=== PATIENT | male | born 1955 | race Caucasian/White ===

== ENCOUNTER 2020-11-02 09:28 | Day surgery (SDC) | payer MEDICARE, OTHER ==
[~2020-11-02] VITALS: Ht 193 cm; Wt 110.9 kg
[~2020-11-02 09:28] MED LIST: FLUD0.1T PO; HCG SC; HYDR20TA24 PO; PANT20TA4 PO
[2020-11-02 09:43] VITALS: BP 147/88
[2020-11-02] MEDS ORDERED: CHLORHEXIDINE 15 ML UDC ONE (09:51)
[2020-11-02] MEDS ORDERED: CHLORHEXIDINE 15 ML UDC PO ONE (10:00)
[2020-11-02] MEDS ORDERED: LACTATED RINGERS 1,000 ML IV SCH (10:00)
[2020-11-02] MEDS ORDERED: GEMCITABINE HCL 1,000 MG in SODIUM CHLORIDE 0.9% 23.7 ML IS ONE (12:00)
[2020-11-02] MEDS ORDERED: FENTANYL PF 100 MCG/2ML ONE (12:25)
[2020-11-02] MEDS ORDERED: MIDAZOLAM 1 MG/ML, 2ML ONE (12:25)
[2020-11-02] MEDS ORDERED: OXYcodone 5 MG/5 ML ORAL.SOL UDC PO PRN (12:30)
[2020-11-02] MEDS ORDERED: LABETALOL 5MG/ML, 20ML IV PRN (12:30)
[2020-11-02] MEDS ORDERED: ACETAMINOPHEN 325 MG TABLET PO PRN (12:30)
[2020-11-02] MEDS ORDERED: MEPERIDINE/PF 25MG/0.5ML IVPush PRN (12:30)
[2020-11-02] MEDS ORDERED: PROMETHAZINE 25 MG/ML, 1ML IVPush PRN (12:30)
[2020-11-02] MEDS ORDERED: HALOPERIDOL 5 MG/ML IV PRN (12:30)
[2020-11-02] MEDS ORDERED: HYDROmorphone 1 MG/ML, 1ML INJ IVPush PRN (12:30)
[2020-11-02] MEDS ORDERED: FENTANYL PF 100 MCG/2ML IV PRN (12:30)
[2020-11-02] MEDS ORDERED: hydrALAzine 20 MG/ML, 1ML IV PRN (12:30)
[2020-11-02] MEDS ORDERED: DIPHENHYDRAMINE 50 MG/ML, 1ML IVPush PRN (12:30)
[2020-11-02] MEDS ORDERED: HYDROCORTISONE 100 MG INJ. ONE (12:46)
[2020-11-02] MEDS ORDERED: SUCCINYLCHOLINE 20 MG/ML, 10ML ONE (13:24)
[2020-11-02] MEDS ORDERED: NEOSTIGMINE 1 MG/ML, 10ML ONE (13:24)
[2020-11-02] MEDS ORDERED: ROCURONIUM 10MG/ML,5ML ONE (13:24)
[2020-11-02] MEDS ORDERED: ONDANSETRON 2MG/ML, 2ML ONE (13:24)
[2020-11-02] MEDS ORDERED: DEXAMETHASONE 4 MG/ML, 1ML ONE (13:24)
[2020-11-02] MEDS ORDERED: PROPOFOL 10 MG/ML, 20ML ONE (13:24)
[2020-11-02] MEDS ORDERED: CEFAZOLIN 1,000 MG ONE (13:24)
[2020-11-02] MEDS ORDERED: GLYCOPYRROLATE 0.2MG/1ML, 5ML ONE (13:24)
== END 2020-11-02 17:20 | disposition home or self-care (01) ==
LOC: OR 09:28 → OUT 17:20
PROVIDERS: ATTEND Urology
DX: N32.89 Other specified disorders of bladder (principal); K21.9 Gastro-esophageal reflux disease without esophagitis; E27.1 Primary adrenocortical insufficiency; E78.5 Hyperlipidemia, unspecified; Z20.822 Contact with and (suspected) exposure to COVID-19; Z79.899 Other long term (current) drug therapy; Z85.51 Personal history of malignant neoplasm of bladder; Z72.89 Other problems related to lifestyle; Z98.890 Other specified postprocedural states
CPT/HCPCS: 51720; 52234; 74018; 88305; 93005; J0330; J0690; J1720; J2250; J2405; J2704; J3010; J7120; J9201; U0003; U0005; 76000; J1100; J2710